=== PATIENT | male | born 2000 | race Hispanic/Latino ===

== ENCOUNTER 2023-10-12 15:49 | Emergency (ER) | payer SELFPAY ==
[2023-10-12 15:54] VITALS: BP 128/83; PULSE 82; RESP 16; TEMP 36.6; O2SAT 99
[2023-10-12 17:36] VITALS: BP 123/78; PULSE 83; RESP 16; O2SAT 99
--- NOTE | 2023-10-12 17:48 | ED.HA ---
HPI - Headache General Chief Complaint: Headache Stated Complaint: h/a for one month Time Seen by Provider: 10/12/23 17:35 Source: patient and family Mode of arrival: ambulatory Limitations: no limitations History of Present Illness HPI Narrative: Patient presents with a headache of one months duration, beginning 09/16/23. Denies prior headaches before this. He notes the headache is at the base of his posterior scalp and around his neck like a band. It improves with movement and is worse with rest/laying down. No injury/trauma. No nausea/vomiting. Intermittently he feels like his neck is stiff. He took 1 ExtraStrength Tylenol a few days ago with no relief. No increased tearing in one/both eyes. No fever, photophobia, phonophobia. Not on anticoagulation. No eye pain. No other family members with symptoms. Related Data Allergies Allergy/AdvReac Type Severity Reaction Status Date / Time No Known Allergies Allergy Mild Verified 10/12/23 17:38 [facility] Social History Social History Living arrangements: with family Additional living arrangements comments: parents Exam Narrative: GENERAL: Well-appearing, well-nourished, and in no acute distress. HEAD: Normocephalic, atraumatic. EYES: Non injected, non icteric. PERRL. No APD. ENT: Nares clear, no rhinorrhea or epistaxis. NECK: Supple. Demonstrates flexion and extension of neck. Mild tenderness to palpation of trapezius muscles. CHEST: Speaking in full sentences. No respiratory distress. HEART: Regular rate and rhythm. . ABDOMEN: Soft, nondistended. EXTREMITIES: Normal range of motion. No lower extremity edema. SKIN: Warm, dry, no rash. NEURO: No focal deficits. Alert and oriented x3. Speaks clearly without aphasia or dysarthria. No abnormal movements. Sensation intact throughout bilateral upper and lower extremities. PSYCH: Normal mood and affect. Course Vital Signs Vital signs: Vital Signs Temperature 97.8 F 10/12/23 15:54 Pulse Rate 82 10/12/23 15:54 Respiratory Rate 16 10/12/23 15:54 Blood Pressure 128/83 10/12/23 15:54 Pulse Oximetry 99 10/12/23 15:54 Temperature 97.8 F 10/12/23 15:54 Pulse Rate 83 08/21/24 17:36 Respiratory Rate 16 10/12/23 17:36 Blood Pressure 123/78 10/12/23 17:36 Pulse Oximetry 99 10/12/23 17:36 MDM - Headache MDM Narrative Medical decision making narrative: Patient presents with report of a headache of 1 months duration. In the emergency department they are afebrile with vital signs within normal limits. After obtaining the patient's history and performing a physical exam, the headache is most likely due to benign etiology. The extensive neurological examination is non-focal, there are no high-risk features on history, vital signs are stable, and the patient is non-toxic appearing. The Ddx for the patient's headache is tension headache, migraine, or other headache of non-emergent etiology. In particular, I suspect a tension headache based on his description of symptoms. Unlikely SAH: headache is non-thunderclap. Headache is gradual and has been present for prolonged period.. Unlikely subdural/epidural hematoma: no history of trauma, no anticoagulation Unlikely meningitis: afebrile, no meningismus, no photophobia Unlikely temporal arteritis: pt <60 years old. No tenderness in temporal area Unlikely acute angle glaucoma: PERRL, no eye pain Unlikely carbon monoxide poisoning: no other house members with similar symptoms The patient's headache was treated symptomatically. He will be discharged with strict return precautions and instructions to follow up with their PCP. He is given Rx for APAP and NSAID. Discharge Plan Discharge Clinical Impression: Tension headache Patient Disposition: Home, Self-Care Condition: Stable Instructions: Antibiotic Form, Tension Headache (ED) Additional Instructions: Your headache sounds very much l
[2023-10-12] MEDS: ACETAMINOPHEN 500 MG TABLET 1000 MG PO (18:25)
[2023-10-12] MEDS: KETOROLAC 30 MG/ML VIAL (*BKC) 15 MG IM (18:26)
[2023-10-12] MEDS: dexAMETHasone 2 MG TABLET 10 MG PO (18:39)
== END 2023-10-12 18:42 | disposition home or self-care (01) ==
PROVIDERS: Emergency Provider Student in an Organized Health Care Education/Training Program; PCP Registered Nurse
DX: G44.209 Tension-type headache, unspecified, not intractable (principal)
CPT/HCPCS: 96372; 99283; A9270; J1885; J8540

== ENCOUNTER 2024-08-20 17:05 | Emergency (ER) | payer OTHER, SELFPAY ==
--- NOTE | ~2024-08-20 | XR_ITS ---
EXAM: XR clavicle RT DATE: 08/20/2024 17:24 HISTORY: tackled playing soccer- clavicle pain . COMPARISON: None available. FINDINGS: Normal mineralization. Transverse right clavicular midshaft fracture, with 4 mm inferior d isplacement and 21 degrees inferior angulation. No lytic or blastic lesion. Joint spaces are maintain ed. No erosion or periosteal change. Soft tissues within normal limits. IMPRESSION: Mildly displaced, angulated right clavicular midshaft fracture. Reviewed, dictated and finalized at location K.
[2024-08-20 17:16] VITALS: BP 126/65; PULSE 68; RESP 20; TEMP 37.2; O2SAT 100
--- NOTE | 2024-08-20 17:19 | ED.UPPEXIN ---
HPI - Extremity Injury (Upper) General Chief Complaint: Extremity Injury, Upper Stated Complaint: Right Arm Shoulder Pain Time Seen by Provider: 08/20/24 17:20 Source: patient Mode of arrival: ambulatory Limitations: no limitations History of Present Illness HPI narrative: Mj is a 23-year-old male patient presenting to the clinic today with complaints of right anterior clavicle pain after being tackled while playing soccer yesterday. He reports he took a shoulder tackle yesterday when playing soccer and has swelling and pain over the right anterior clavicle. He is unable to lift his right arm without significant pain over the clavicle area. Sensation and circulation within normal limits. Related Data Home Medications ?Medication ?Instructions ?Recorded ?Confirmed ?Last Taken ?Type No Home Medications 08/20/24 08/20/24 Unknown History Allergies Allergy/AdvReac Type Severity Reaction Status Date / Time No Known Allergies Allergy Mild Verified 10/12/23 17:38 Review of Systems Review of Systems: Pertinent positives per HPI. Patient denies any fever, chills, rash, headache, visual changes, dizziness, cough, runny nose, sore throat, shortness of breath, chest pain, palpitations, nausea, vomiting, diarrhea, constipation, abdominal pain, or any urinary issues. PMFSH Social History Social History Living arrangements: with family Additional living arrangements comments: parents Comments At the time of my signature, I reviewed and agree with the nursing past medical, surgical, social, and family history. There is no relevant family history pertinent to the patient complaint. Exam Narrative: General: Well-developed, well nourished, in no apparent distress Head: Normocephalic, atraumatic. Cardio: Regular rate and rhythm, s1 and s2 normal, no murmur appreciated. Resp: Clear to auscultation bilaterally, no rhonchi, rales, wheezing or rubs. Musculoskeletal: Obvious deformity of the right clavicle, swelling and tender to palpation over the right anterior clavicle, unable to lift the right arm without pain to the anterior right clavicle, muscle strength strong and equal, peripheral pulse strong, no edema, no cyanosis, normal gait and station Course Course Emergency Course: Portions of this record may have been created with voice recognition software. Level of Care: Express Care Visit Vital Signs Vital signs: Vital Signs Temperature 37.2 C 08/20/24 17:16 Pulse Rate 68 08/20/24 17:16 Respiratory Rate 20 08/20/24 17:16 Blood Pressure 126/65 08/20/24 17:16 Pulse Oximetry 100 08/20/24 17:16 Oxygen Delivery Room Air 08/20/24 17:16 Temperature 37.2 C 08/20/24 17:16 Pulse Rate 68 08/20/24 17:16 Respiratory Rate 20 08/20/24 17:16 Blood Pressure 126/65 08/20/24 17:16 Pulse Oximetry 100 08/20/24 17:16 Oxygen Delivery Room Air 08/20/24 17:16 Vital signs reviewed MDM - Extremity Injury (Upper) MDM Narrative Medical decision making narrative: At the time of visit patient is resting comfortably on the exam table. Patient appears to be nontoxic. Diagnostics: X-ray of the right clavicle was performed-closed mid shift slightly displaced clavicle fracture Plan: I suspect patient has a close mid shift clavicle fracture. Arm sling was given. Ice pack was given. Work note was given. Supportive measures were discussed with the patient and they voiced understanding discharge instructions and agrees to treatment plan. Return precautions reviewed Differential Diagnosis Differential diagnosis: Likely dislocation of shoulder, fracture of clavicle and other (Contusion, soft tissue injury) Imaging Data Radiologist's impression: ITS Impressions Clavicle X-Ray 08/20/24 17:59 IMPRESSION: Mildly displaced, angulated right clavicular midshaft fracture. Discharge Plan Discharge Clinical Impression: Clavicle fracture Qualifiers: Encounter type: initial encounter Clavicle location: shaft Fracture type: closed Fracture alignment: displaced Laterality: right Qualified Code(s): S42.021A - Displaced fracture of shaft of right clavicle, initial encounter for closed fracture Patient Disposition: Home Condition: Stable Instructions: Antibiotic Form, Clavicle Fracture (ED) Additional Instructions: X-ray shows a right mid shaft clavicle fracture Rest, ice, elevate, and wear arm sling as directed No use of the right arm until cleared by orthopedic provider Tylenol/motrin for pain as discussed. Apply ice to the affected area for 20 minutes at a time-20 minutes on/20 minutes off for the next 24-48 hours Follow up with your PCP if symptoms persist more than 1 week. Follow-up with orthopedic provider- Dr. Ungacta - call office to schedule an appointment. Patient Language: Amparo Prescriptions: No Action No Home Medications Follow-up/Referrals: Francisco,SKYLER Tobin [Primary Care Provider] - Javier Rodriguez MD [Physician] - 1 Day (Right mildly displaced mid shaft clavicle fracture) Stand Alone Forms: Work/School Release IP Time of Disposition: 17:37 Quality NIHSS Nursing Documentation ED NIHSS nursing documentation: reviewed/agree
== END 2024-08-20 18:25 | disposition home or self-care (01) ==
PROVIDERS: Emergency Provider Nurse Practitioner Family; PCP Registered Nurse
DX: S42.021A Displaced fracture of shaft of right clavicle, initial encounter for closed fracture (principal); W03.XXXA Other fall on same level due to collision with another person, initial encounter; Y93.66 Activity, soccer
CPT/HCPCS: 73000; 99214; A4565; G0463

== ENCOUNTER 2024-12-08 12:31 | Outpatient (CLI) | payer OTHER, SELFPAY ==
[2024-12-08 12:50] LABS: Hematocrit 44.4 % (42.0-52.0); Hemoglobin 14.9 g/dL (14.0-18.0); Immature Granulocyte Percent A 0.2 % (0-0.5); Lymphocytes Absolute Auto 1.99 K/mm3 (0.9-3.2); Mean Corpuscular HGB Conc 33.6 g/dl (32-36); Mean Corpuscular Hemoglobin 29.4 pg (26-34); Mean Corpuscular Volume 87.6 fl (80-100); Nucleated Red Blood Cells Absolute Auto 0.000 K/mm3 (0.0-0.012); Nucleated Red Blood Cells Perc 0.0 % (0.0-0.2); Platelet Count Result 221 k/mm3 (150-375); Red Blood Count 5.07 M/mm3 (4.6-6.20); White Blood Count 5.1 K/mm3 (4.5-10.0)
[2024-12-08 12:53] LABS: Add Urine Microscopic? NO; Appearance Urine Clear (Clear); Glucose Urine UA Negative (Negative); Leukocyte Esterase Ur Negative LEU/UL (Negative); Nitrate Urine Negative (Negative); Specific Grav Ur 1.007 (1.001-1.035)
[2024-12-08 13:15] LABS: Alanine Aminotransferase 37 U/L (6-50); Albumin Level 4.6 g/dL (3.5-5.1); Alkaline Phosphatase 112 U/L (38-126); Anion Gap 7 mmol/L (4-12); Aspartate Amino Transferase 32 U/L (17-59); Bilirubin,Total 0.9 mg/dL (0.2-1.3); Blood Urea Nitrogen 9 mg/dL (9-20); Calcium 9.3 mg/dL (8.4-10.2); Carbon Dioxide 26 mmol/L (22-30); Chloride 103 mmol/L (98-107); Cholesterol 173 mg/dL (0-200); Estimated Glomerular Filt Rate > 60; Glucose 98 mg/dL (65-110); HDL Direct 47 mg/dL; Potassium 4.3 mmol/L (3.4-5.0); Sodium 136 mmol/L (137-145); Total Protein 8.0 g/dL (6.3-8.2); Triglycerides 90 mg/dL (<150)
[2024-12-08 13:50] LABS: Thyroid Stimulating Hormone 0.798 uIU/mL (0.465-4.680)
[2024-12-08 14:26] LABS: Vitamin B12 892.0 pg/mL (239-931)
== END 2024-12-08 12:32 | disposition home or self-care (01) ==
LOC: ANHLAB 12:33
PROVIDERS: PCP Nurse Practitioner; Visit Provider Nurse Practitioner
DX: Z00.00 Encounter for general adult medical examination without abnormal findings (principal); L65.9 Nonscarring hair loss, unspecified; Z13.21 Encounter for screening for nutritional disorder; R53.81 Other malaise; E55.9 Vitamin D deficiency, unspecified; R63.5 Abnormal weight gain; L64.9 Androgenic alopecia, unspecified
CPT/HCPCS: 36415; 80053; 80061; 81003; 82306; 82607; 82746; 84443; 85025